=== PATIENT | female | born 1990 | race Caucasian/White ===

== ENCOUNTER 2021-05-28 23:33 | Inpatient (IN) ==
[2021-05-29 00:50] LABS: Basophils % 0.6 %; Eosinophils % 0.4 %; Hematocrit 38.2 % (35.3-44.9); Hemoglobin 12.8 g/dL (11.5-15.4); Lymphocytes # 0.9 K/mcL (0.6-4.6); Lymphocytes % 12.9 %; Mean Corpuscular HGB Conc 33.5 g/dL (31.6-35.5); Mean Corpuscular Volume 83.6 fL (83.0-100.0); Mean Platelet Volume 10.7 fL (9.4-12.4); Monocytes # 0.3 K/mcL (0.0-1.3); Monocytes % 4.1 %; Neutrophils # 5.6 K/mcL (1.6-8.9); Platelet Count 231 K/mcL (140-400); Red Blood Count 4.57 M/mcL (3.82-4.97); Red Cell Distribution Width 14.8 % (11.5-14.5); White Blood Count 6.9 K/mcL (4.3-11.1)
[2021-05-29 01:14] LABS: Acetaminophen < 10 mcg/mL (10-20); Alanine Aminotransferase 32 Units/L (7-52); Albumin 4.7 g/dL (3.5-5.7); Albumin/Globulin Ratio 1.7 (1.1-2.2); Alkaline Phosphatase 71 Units/L (34-104); Aspartate Amino Transferase 31 Units/L (13-39); BUN/Creatinine Ratio 29 (6-26); Bilirubin,Direct 0.6 mg/dL (0.0-0.2); Bilirubin,Total 1.6 mg/dL (0.3-1.0); Blood Urea Nitrogen 24 mg/dL (6-20); Calcium 9.7 mg/dL (8.6-10.3); Carbon Dioxide 19 mEq/L (23-29); Chloride 105 mEq/L (98-107); Ethanol < 10 mg/dL (Less than 10); Globulin 2.8 g/dL (2.4-3.5); Glucose 83 mg/dL (70-105); Osmolality,Calculated 291 (280-300); Salicylate < 2.5 mg/dL (15.0-30.0); Sodium 139 mEq/L (136-145); Total Protein 7.5 g/dL (6.4-8.9); Troponin I < 0.03 ng/mL (< 0.04); eGFR For African Americans > 60 (> 60); eGFR For Non-African Americans > 60 (> 60)
[2021-05-29] MEDS ORDERED: Potassium Chloride Elixir 20 MEQ/15 ML UDC PO ONE (02:47)
[2021-05-29] MEDS ORDERED: Isovue-370 500 ML BOTTLE IVP ONE (04:08)
[2021-05-29] MEDS ORDERED: 0.9 % Sodium Chloride 1,000 ML IVC ONE (04:09)
[2021-05-29 04:29] LABS: Amphetamine Screen,Urine Positive ng/mL (Cutoff=1000); Barbiturate Screen,Urine Negative ng/mL (Cutoff=200); Benzodiazepines Screen,Urine Negative ng/mL (Cutoff=200); Cannabinoid Screen,Urine Positive ng/mL (Cutoff = 50); Cocaine Screen,Urine Negative ng/mL (Cutoff= 300); Opiate Screen,Urine Negative ng/mL (Cutoff=300); Phencyclidine Screen,Urine Negative ng/mL (Cutoff=25)
[2021-05-29 04:33] LABS: Bilirubin,Urine Negative (Negative); Blood,Urine Moderate (Negative); Clarity,Urine Clear (Clear); Color,Urine Yellow (Yellow); Glucose,Urine (UA) Normal (Normal); Ketones,Urine >150 mg/dL (Negative); Leukocyte Esterase,Urine Small (Negative); Mucus,Urine Few per lpf (None-Few); Nitrite,Urine Negative (Negative); Protein,Urine 30 mg/dL (Neg-Trace); Specific Gravity,Urine 1.027 (1.010-1.025); Squamous Epithelial Cell,Urine Moderate per hpf (None-Few)
[2021-05-29] MEDS ORDERED: *HR* LORazepam 1 MG TABLET PO ONE (05:14)
[2021-05-29 15:29] LABS: Adenovirus Not Detected (Not Detect); Bordetella Pertussis Not Detected (Not Detect); Chlamydophila pneumoniae Not Detected (Not Detect); Coronavirus 229E Not Detected (Not Detect); Coronavirus HKU1 Not Detected (Not Detect); Coronavirus NL63 Not Detected (Not Detect); Coronavirus OC43 Not Detected (Not Detect); Human Metapneumovirus Not Detected (Not Detect); Human Rhinovirus/Enterovirus Not Detected (Not Detect); Influenza A Subtype 2009 H1 Not Detected (Not Detect); Influenza B Not Detected (Not Detect); Mycoplasma pneumoniae Not Detected (Not Detect); Parainfluenza Virus 1 Not Detected (Not Detect); Parainfluenza Virus 2 Not Detected (Not Detect); Parainfluenza Virus 3 Not Detected (Not Detect); Parainfluenza Virus 4 Not Detected (Not Detect); Respiratory Syncytial Virus Not Detected (Not Detect); SARS-CoV-2 Not Detected (Not Detect)
[2021-05-29] MEDS ORDERED: Haloperidol Lactate 5 MG/ML VIAL IM PRN (17:11)
[2021-05-29] MEDS ORDERED: QUEtiapine Fumarate 25 MG TABLET PO PRN (17:11)
[2021-05-29] MEDS ORDERED: hydrOXYzine pamoate 25 MG CAPSULE PO PRN (17:11)
[2021-05-29] MEDS ORDERED: *HR* LORazepam 2 MG/ML VIAL IM PRN (17:11)
[2021-05-29] MEDS ORDERED: *HR* LORazepam 1 MG TABLET PO PRN (17:11)
[2021-05-29] MEDS ORDERED: Acetaminophen 325 MG TABLET PO PRN (17:11)
[2021-05-29] MEDS ORDERED: haloperidoL 5 MG TABLET PO PRN (17:11)
[2021-05-29] MEDS: OLANZapine 10 MG TAB.RAPDIS PO SCH (20:13)
[2021-05-30] MEDS: OLANZapine 10 MG TAB.RAPDIS PO SCH ×2 (12:47→20:46)
[2021-05-31] MEDS ORDERED: OLANZapine 5 MG TAB.RAPDIS PO STA (12:04)
[2021-05-31] MEDS: OLANZapine 10 MG TAB.RAPDIS PO SCH (16:13)
[2021-05-31] MEDS ORDERED: OLANZapine 10 MG TAB.RAPDIS PO SCH (21:00)
[2021-06-01] MEDS ORDERED: OLANZapine 5 MG TAB.RAPDIS PO SCH ×2 (09:00)
[2021-06-01 13:06] VITALS: BP 89/52; PULSE 80; TEMP 97.9; O2SAT 98
== END 2021-06-01 13:20 | disposition home or self-care (01) | DRG 751 ==
LOC: EMEROOARM 23:33 → 1ANU 05-29 16:02
PROVIDERS: ADMIT Psychiatry & Neurology Psychiatry; ATTEND Psychiatry & Neurology Psychiatry